=== PATIENT | female | born 1985 | race Caucasian/White ===

== ENCOUNTER 2019-06-19 21:22 | Emergency (ER) | payer OTHER, SELFPAY ==
[2019-06-19 21:40] VITALS: BP 130/90; PULSE 120; RESP 18; TEMP 37.4; O2SAT 97; BMI 29.1
[2019-06-19 22:34] LABS: Add Manual Diff / Slide Review NO; Basophils Absolute Auto 0 /uL (0-100); Basophils Percent Auto 0.5 % (0-2); Eosinophils Absolute Auto 100 /uL (0-450); Eosinophils Percent Auto 1.2 % (2-4); Hematocrit 38.7 % (36-46); Hemoglobin 12.7 g/dL (12.0-16.0); Lymphocytes Absolute Auto 1800 /uL (1100-4500); Lymphocytes Percent Auto 17.8 % (25-40); Mean Corpuscular HGB Conc 32.8 % (30-36); Mean Corpuscular Volume 79.3 fL (80-100); Monocytes Absolute Auto 800 /uL (0-900); Neutrophils Absolute Auto 7300 /uL (1500-7000); Neutrophils Percent Auto 72.5 % (50-75); Platelet Count 232 X10^3/uL (150-400); Red Blood Cell Count 4.88 X10^6/uL (4.0-5.2); Red Cell Distribution Width 13.6 % (11.6-14.8); White Blood Cell Count 10.1 X10^3/uL (4.5-11.0)
[2019-06-19] MEDS: SODIUM CHLORIDE 0.9% 1,000 ML 1000 ML IV (22:37)
[2019-06-19 22:42] LABS: Alanine Aminotransferase 40 IU/L (9-52); Albumin 4.4 g/dL (3.5-5.0); Albumin Globulin Ratio 1.2 (1.0-2.8); Alkaline Phosphatase 118 U/L (38-126); Aspartate Aminotransferase 26 IU/L (14-36); BUN Creatinine Ratio 18.6 (6-22); Bilirubin Total 0.4 mg/dL (0.2-1.3); Blood Urea Nitrogen 13 mg/dL (7-17); Calcium 9.5 mg/dL (8.4-10.2); Carbon Dioxide 23 mmol/L (22-32); Chloride 105 mmol/L (98-107); Estimated Glomerular Filt Rate > 60.0 mL/min (>60); Globulin 3.7 g/dL (1.7-4.1); Glucose 113 mg/dL (70-100); HEMOLYSIS < 15 (0-50); Lipase 98 U/L (23-300); Potassium 3.9 mmol/L (3.4-5.1); Sodium 138 mmol/L (137-145); Total Protein 8.1 g/dL (6.3-8.2)
[2019-06-19 22:48] LABS: Bacteria Urine Few (2-10); Culture Indicated Urine Specimen Cultured; RBC Urine 1-5/HPF (0-5/HPF); Squamous Epithelial Cell Urine 1-5 /HPF (0-5/HPF); WBC Urine 5-10/HPF (0-5/HPF)
[2019-06-19 23:07] VITALS: BP 111/67; PULSE 83; RESP 16; O2SAT 100
--- NOTE | 2019-06-19 23:44 | ED.ABDPAIN ---
HPI - Abdominal Pain General Chief Complaint: Abdominal Pain Stated Complaint: Feeling sick s/p hysterectomy Time Seen by Provider: 06/19/19 22:02 Source: patient Mode of arrival: ambulatory Limitations: no limitations History of Present Illness HPI narrative: 33-year-old female comes in with increased abdominal pain, patient states that she had her hysterectomy 10 days ago in [place] [facility] [place]. Patient states that she not had any documented fevers but has had felt a little fever to chilled. She has had increasing abdominal pain she states for some is on the right than the left and kind of now kind of all about. She has had a little nausea but no vomiting. She has had diarrhea she states has been foul in odor and sort of mucousy. She has had no issues with urination no burning or urgency or frequency. She states her incisions have been doing well. She states it does feel like there is like a balloon or something needs to come out when she has a bowel movement but has not made its way out. She states that she has had prior abdominal surgeries including had an IUD that went ?on walk about and wrapped itself around her aorta.She had this removed by her surgeon in [place]. She has had multiple orthopedic surgeries in the past. She takes medication for blood pressure, PCOS, spironolactone for acne and states she had a heart attack in the past and takes minipress. Related Data Previous Rx's Medication Instructions Recorded dicyclomine 20 mg PO QID PRN #20 tab 06/20/19 Allergies Allergy/AdvReac Type Severity Reaction Status Date / Time ondansetron AdvReac Verified 06/19/19 21:39 [facility] Social History Smoking Status: Never smoker Social History Smoking Status: Never smoker Exam Narrative Exam Narrative: GENERAL: Alert and oriented x three, well-nourished for a male in mild distress. Patient feels more comfortable with her knees drawn up to her chest. HEENT: Head normocephalic, atraumatic, EOMI, pupils reactive, face symmetric, moist mucous membranes NECK: Supple, full range of motion CARDIOVASCULAR: Regular rate and rhythm without murmurs, rubs or gallops. RESPIRATORY: Breath sounds equal bilaterally, no wheezes rales or rhonchi. ABDOMEN: Soft, moderate generalized tenderness. Normoactive bowel sounds all 4 quadrants. No guarding or rebound, rigidity, no mass. Patient has 3 small laparoscopic incisions which appear clean dry and healing. : Right CVA tenderness, no left EXTREMITIES: Normal range of motion, no clubbing or edema. Neurovascularly intact NEUROLOGICAL: Cranial nerves II through XII grossly intact. Moving all extremities SKIN: Warm, dry, no petechiae, no rashes or lesions. Initial Vital Signs Initial Vital Signs: Vital Signs Temperature 99.4 F 06/19/19 21:40 Pulse Rate 120 H 06/19/19 21:40 Respiratory Rate 18 06/19/19 21:40 Blood Pressure 130/90 06/19/19 21:40 Pulse Oximetry 97 06/19/19 21:40 Course Orders Ordered: ED Orders 06/19/19 22:20 Complete Blood Count AUTO DIFF Stat Comprehensive Metabolic Panel Stat Lipase Stat Urine Culture Stat Urine Microscopic Stat 06/19/19 23:52 CT abdomen pelvis w con Stat Discontinued Medications Dicyclomine HCl (Bentyl) 20 mg PO NOW ONE Stop: 06/20/19 01:41 Last Admin: 06/20/19 01:57 Dose: 20 mg Documented by: JANEE Diphenhydramine HCl (Benadryl) 25 mg IV NOW ONE Stop: 06/19/19 23:53 Last Admin: 06/20/19 00:52 Dose: 25 mg Documented by: JANEE Sodium Chloride (Normal Saline 0.9%) 1,000 mls @ 1,000 mls/hr IV BOLUS ONE Stop: 06/19/19 23:00 Last Infusion: 06/19/19 23:37 Dose: 0 mls/hr Documented by: Admin: 06/19/19 22:37 Dose: 1,000 mls/hr Documented by: JANEE Ketorolac Tromethamine (Toradol) 30 mg IV NOW ONE Stop: 06/19/19 23:53 Last Admin: 06/20/19 00:52 Dose: 30 mg Documented by: JANEE Vital Signs Vital signs: Vital Signs - 8 hr 06/19/19 23:07 06/20/19 01:20 Pulse Rate 83 73 Respiratory Rate 16 16 Blood Pressure [Right Arm] 111/67 109/67 Pulse Oximetry 100 98 MDM - Abdominal Pain Lab Data Attestation: I reviewed the patient's lab results. Result diagrams: 06/19/19 22:20 06/19/19 22:20 Labs: Lab Results 06/19/19 06/19/19 06/19/19 Range/Units 22:20 22:20 22:20 WBC 10.1 (4.5-11.0) X10^3/uL RBC 4.88 (4.0-5.2) X10^6/uL Hgb 12.7 (12.0-16.0) g/dL Hct 38.7 (36-46) % MCV 79.3 L (80-100) fL MCH 26.0 (26-34) PG MCHC 32.8 (30-36) % RDW 13.6 (11.6-14.8) % Plt Count 232 (150-400) X10^3/uL Neut % (Auto) 72.5 (50-75) % Lymph % (Auto) 17.8 L (25-40) % Person % (Auto) 8.0 (3-14) % Eos % (Auto) 1.2 L (2-4) % Baso % (Auto) 0.5 (0-2) % Neut # (Auto) 7300 H (2098-0688) /uL Lymph # (Auto) 1800 (7889-7480) /uL Person # (Auto) 800 (0-900) /uL Eos # (Auto) 100 (0-450) /uL Baso # (Auto) 0 (0-100) /uL Sodium 138 (137-145) mmol/L Potassium 3.9 (3.4-5.1) mmol/L Chloride 105 (98-107) mmol/L Carbon Dioxide 23 (22-32) mmol/L BUN 13 (7-17) mg/dL Creatinine 0.70 (0.52-1.04) mg/dL Estimated GFR > 60.0 (>60) mL/min BUN/Creatinine Ratio 18.6 (6-22) Glucose 113 H (70-100) mg/dL Calcium 9.5 (8.4-10.2) mg/dL Total Bilirubin 0.4 (0.2-1.3) mg/dL AST 26 (14-36) IU/L ALT 40 (9-52) IU/L Alkaline Phosphatase 118 (38-126) U/L Total Protein 8.1 (6.3-8.2) g/dL Albumin 4.4 (3.5-5.0) g/dL Globulin 3.7 (1.7-4.1) g/dL Albumin/Globulin Ratio 1.2 (1.0-2.8) Lipase 98 (23-300) U/L Urine RBC 1-5/hpf (0-5/HPF) Urine WBC 5-10/hpf H (0-5/HPF) Ur Squamous Epith Cells 1-5 /hpf (0-5/HPF) Urine Bacteria Few (2-10) H (None) Ur Culture Indicated? Specimen cultured Point of care testing: Urine Dip Bedside Urine Glucose Negative Bedside Urine Bilirubin - Negative Bedside Urine Ketone +/- 5 Urine Specific [place] 1.020 Bedside Urine Occult Blood + Bedside Urine pH 6.0 Bedside Urine Protein - Negative Bedside Urine Urobilinogen - Negative Bedside Urine Nitrite - Negative Bedside Urine Leukocytes +/- [address] scan - abdomen: Radiologist's impression: Fluid within the colon compatible with history of diarrhea. No bowel obstruction or inflammatory bowel changes at than the colon. Minor distal small bowel stasis without obstruction. Status post near recent hysterectomy without apparent complication. There is a small fat containing umbilical hernia. MDM Narrative Medical decision making narrative: Positive leukocyte esterase, negative nitrates. Sent for urine culture. Labs otherwise fairly unremarkable. CT shows no clear acute changes for causes of patient's abdominal pain. Plan to wait for urine culture, bentyl. Discussed signs and symptoms to watch for and reasons to return emergently. Discharge Plan Departure Patient Disposition: Home Clinical Impression: Abdominal pain, S/P abdominal hysterectomy Discharge Date/Time: 06/20/19 02:02 Activity Restrictions/Additional Instructions: Follow up with your surgeon this week. Call the office tomorrow to speak with the reservation manager provider. Continue the pain medications prescribed by her physician. You may also take Bentyl 1 tablet every 6-8 hours as needed. Make sure your drinking plenty fluids. Urine cultures pending, this is positive you should receive a call next 24-48 hours. Return to the emergency department for fevers greater than 100.4 F, persistent vomiting, rapidly worsening pain, worsening diarrhea, black or bloody stools or other new or concerning symptoms. Prescriptions: New dicyclomine 20 mg tablet 20 mg PO QID PRN (Reason: spasm) Qty: 20 RF: 0
--- NOTE | 2019-06-19 23:52 | DI.CT.S_ITS ---
PROCEDURE: CT ABDOMEN PELVIS W CON INDICATIONS: 10 days post-op hysterectomy, increased abdominal pain, diarrhea TECHNIQUE: After the administration of intravenous contrast, 5 mm thick sections acquired from the diaphragm to the symphysis. 5 mm coronal and sagittal reformats were acquired. For radiation dose reduction, the following was used: automated exposure control, adjustment of mA and/or kV according to patient size. COMPARISON: None. FINDINGS: Image quality: Excellent. ABDOMEN: Lung bases: Lung bases are clear. Heart size is normal. Solid organs: Liver is normal in size and enhancement. Gallbladder wall is not thickened. Biliary system is non dilated. Pancreas enhances normally. Spleen is normal in size and enhancement. No adrenal nodules. Kidneys demonstrate normal size and enhancement, without hydronephrosis. Peritoneum and bowel: Bowel loops demonstrate normal wall thickness and caliber. No free fluid or air. Fluid is seen within the colon. Nodes and vessels: No retroperitoneal or mesenteric adenopathy by size criteria. Aorta and inferior vena cava are normal in size. Miscellaneous: No ventral hernias. PELVIS: Genitourinary: Bladder wall thickness is normal. There is recent hysterectomy. There is inflammatory change seen of the vaginal cuff, without findings of abscess or dehiscence. No abnormal regional gas can be seen. Mild surrounding inflammatory change is seen. Miscellaneous: No inguinal hernias or adenopathy. Incidental note is made of a metallic body ornamentation artifact. Bones: No suspicious bony lesions. No vertebral body compression fractures. IMPRESSION: Status post hysterectomy, with expected postoperative findings, without abscess or dehiscence. Fluid is seen within the colon, which is consistent with the given history of diarrhea. Note: No significant discrepancy from the preliminary report. Dictated by: Reji Farris M.D. on 06/20/2019 at 8:29 Approved by: Reji Farris M.D. on 06/20/2019 at 8:32
[2019-06-20] MEDS: diphenhydrAMINE 50 MG/ML VIAL 25 MG IV (00:52)
[2019-06-20] MEDS: KETOROLAC 60 MG/2 ML VIAL 30 MG IV (00:52)
[2019-06-20 01:20] VITALS: BP 109/67; PULSE 73; RESP 16; O2SAT 98
[2019-06-20] MEDS: DICYCLOMINE 10 MG CAPSULE 20 MG PO (01:57)
== END 2019-06-20 02:02 | disposition home or self-care (01) ==
PROVIDERS: Emergency Provider Emergency Medicine
DX: R10.9 Unspecified abdominal pain (principal); Z90.710 Acquired absence of both cervix and uterus
CPT/HCPCS: 36591; 74177; 80053; 81003; 81015; 83690; 85025; 87086; 96361; 96374; 96375; 99283; 99285; J1200; J1885; Q9967